=== PATIENT | female | born 1935 | race Caucasian/White ===

== ENCOUNTER → 2019-10-20 | Outpatient (CLI) | payer MEDICARE, OTHER ==
[~2019-10-20] MED LIST: ACET500 PO; ASPI81CH; CARV3.125 PO; CIPR500 PO; CLOP75 PO; DIPASPER PO; FLUC150A PO; GLIP10; HYDACE5 PO; KETO15TC TP; LANS15EC PO; LEVSOD100 PO; LEVSOD88 PO; LOSA25; MELA3; METF500 PO; OFLO.3OTSO AU; OMEP20ER; PHENA100 PO; PROB500 PO; PSYL5.85P PO; SIMV10 PO; TELM40 PO; TELM80 PO; TETR.05OPS OP; VYTONE
== END | disposition home or self-care (01) ==
LOC: LAB 10:07 → LAB SHORT 10:07
DX: H60.8X2 Other otitis externa, left ear (principal)
CPT/HCPCS: 87070; 87077; 87147; 87186; 87205